=== PATIENT | male | born 1950 | race Caucasian/White ===

== ENCOUNTER 2017-06-22 11:49 | Inpatient (IN) | payer OTHER, MEDICARE ==
[~2017-06-22] VITALS: Ht 182.9 cm; Wt 100.5 kg
[~2017-06-22 11:49] MED LIST: FAMO20T PO; MAG355OR31 PO
[2017-06-22 12:06] VITALS: BP 126/80; PULSE 77; RESP 14; O2SAT 98
--- NOTE | 2017-06-22 12:25 | ED.REPORT ---
HPI-Abd Pain M 40 and Over Date of Service Jun 22, 2017 ED Provider: Gustavo Chao MD Patient is a 66 year old male with a hx of hyperlipidemia and borderline DM who presents to the ED complaining of LLQ abdominal pain onset yesterday. Associated symptoms include fever and decreased appetite. He denies nausea, vomiting, hematochezia, cough, SOB, congestion, or any other symptoms. He has not had a BM in over 24 hours. He last last ate or drank this morning. Patient has had diverticulitis previously. Nursing Notes Stated Complaint: DIVERTICULITIS Chief Complaint: Male Abdominal Pain Nursing Notes Reviewed: Yes Allergies: Coded Allergies: No Known Allergies (Unverified , 12/05/15) Scheduled Famotidine (Pepcid) 20 Mg Tablet 20 MG PO BID Mag Hydrox/Al Hydrox/Simeth (Antacid M Liquid) 355 Ml Oral.susp 15 ML PO q4hr General Time Seen by MD: 12:20 Chief Complaint Abdominal pain Hx Obtained From: Patient Arrived By: Walk-in Sudden in Onset?: Yes Onset Occurred: Yesterday Symptom Duration: Since onset Recent Healthcare: Recent doctor visit Similar Sx Previous: Yes Risk Factors )( AAA Risk Stratification SmokingNo Hypertension, No Marfan's syndrome, No Prior AAA Risk factors reviewed Past Medical History Past Medical History alcoholism PTSD cat scratch fever Reports: Diabetes mellitus (borderline ), Hyperlipidemia Reports: Diverticulitis Past Surgical History abd hernia Smoking History Current Every Day Smoker Social History reported previously in recovery Alcohol Use: "Social" Drug Use: Denies drug use Ambulatory Status Independent Review of Systems Review of Systems Note: +decreased appetite Constitutional: Reports: Fever Respiratory: Denies: Non-productive cough, Shortness of breath GI: Reports: Abdominal pain, Denies: Hematochezia, Nausea, Vomiting Complete sys rev & neg: except as marked. Ears / Nose / Throat: Denies: Nasal congestion Physical Exam Initial Vital Signs Vital Signs (First) Date Time Temp Pulse Resp B/P Pulse Ox O2 Delivery O2 Flow Rate FiO2 06/22/17 12:06 37.7 77 14 126/80 98 Room Air Initial VS: Reviewed, Vital signs abnormal Head / Eyes: Atraumatic, Normocephalic Neck: Full range of motion Skin: Warm, Dry Neurologic: Alert, Oriented, Nonfocal Psychiatric: Mood/affect normal, Behavior normal, Normal thought content General/Constitutional: Awake, Alert, No acute distress Respiratory / Chest: Atraumatic, Breath sounds NL, Breath sounds = bilat, No respiratory distress Cardiovascular: Heart rate NL, Regular rhythm, Heart sounds NL, No murmurs Abdomen: Atraumatic, Soft Diminished bowel sounds moderate LLQ tenderness no rebound or guarding Back: Atraumatic Interpretation & Diagnostics Lab Results Interpretation Result Diagram: 06/22/17 1225 06/22/17 1225 Test 06/22/17 12:25 06/22/17 14:02 White Blood Count 17.4th/mm3 (3.8-10.1) Red Blood Count 4.90mil/mm3 (4.40-5.80) Hemoglobin 15.4g/dL (13.8-17.2) Hematocrit 44.1% (41.0-50.0) Mean Corpuscular Volume 90.0fL (81-100) Mean Corpuscular Hemoglobin 31.4pg (27.0-35.0) Mean Corpuscular Hemoglobin Concent 34.9% (32.0-37.0) Red Cell Distribution Width 13.0% (12.3-15.4) Platelet Count 286bil/L (150-400) Neutrophils (%) (Auto) 90.5% (40-74) Lymphocytes (%) (Auto) 5.5% (14-46) Monocytes (%) (Auto) 3.7% (4-12) Eosinophils (%) (Auto) 0% (0-5) Basophils (%) (Auto) 0.1% (0-3) Sodium Level 134mEq/L (134-144) Potassium Level 4.3mEq/L (3.5-5.2) Chloride Level 96mEq/L (97-108) Carbon Dioxide Level 24mmol/L (18-29) Blood Urea Nitrogen 18mg/dL (8-27) Creatinine 1.15mg/dL (0.76-1.27) Estimat Glomerular Filtration Rate 67mL/min (>59) Glucose Level 113mg/dL (60-99) Calcium Level 9.4mg/dL (8.5-10.1) Magnesium Level 2.0mg/dL (1.6-2.6) Total Bilirubin 1.2mg/dL (0.0-1.2) Aspartate Amino Transf (AST/SGOT) 12U/L (0-50) Alanine Aminotransferase (ALT/SGPT) 13U/L (0-44) Alkaline Phosphatase 85U/L (25-160) Total Protein 8.1g/dL (6.4-8.4) Albumin 4.4g/dL (3.4-5.0) Lipase 13U/L (13-60) Hold Rosario Top Tube Received (Received) Urine Color Yellow (YELLOW) Urine Appearance Hazy (CLEAR,HAZY) Urine pH 6.0 (5.0-8.0) Urine Specific [place] 1.025 (1.003-1.035) Urine Protein Tracemg/dL (NEG,TRACE) Urine Glucose (UA) Negativemg/dL (NEGATIVE) Urine Ketones Tracemg/dL (NEGATIVE) Urine Occult Blood Negative (NEGATIVE) Urine Nitrite Negative (NEGATIVE) Urine Bilirubin Negative (NEGATIVE) Urine Urobilinogen Normalmg/dL (NORMAL) Urine Leukocyte Esterase Negative (NEGATIVE) Urine RBC 0-2/hpf (0-2) Urine WBC 0-5/hpf (0-5) Urine Epithelial Cells Occasional/hpf (NONE-MOD) Urine Crystals None seen (NONE SEEN) Urine Bacteria Few/hpf (NONE-FEW) Urine Hyaline Casts None/lpf (NONE) Urine Granular Casts Occasional (NONE SEEN) Urine Waxy Casts None seen (NONE SEEN) Urine Red Blood Cell Casts None seen (NONE SEEN) Urine White Blood Cell Casts None seen (NONE SEEN) Urine Mucus Present (None Seen) Urine Trichomonas None seen (NONE SEEN) Urine Yeast None (NONE SEEN) Urinalysis Comment None Urine Culture Reflexed Not indicated Re-Eval/Medical Decision Med Decision/Clinical Course 66-year-old male history of alcohol abuse is not in with left lower quadrant pain. CT scan shows diverticulitis with a small 1 x 1.8 cm abscess with perforation. His white count is 17,000. Discussed with general surgery who recommends admission to hospital service with IV antibiotics. They will evaluate. Patient was given 2 L normal saline and Zosyn. Blood cultures were sent. He is kept nothing by mouth. Last by mouth was last night. He reports he has not had a drink in quite some time. Discharge & Departure Primary Impression: Diverticulitis of intestine with perforation and abscess Disposition: ADMITTED TO HOSPITAL Vital Signs - All Vital Signs Date Time Temp Pulse Resp B/P Pulse Ox O2 Delivery O2 Flow Rate FiO2 06/22/17 14:10 37.9 80 14 128/81 98 Room Air 06/22/17 12:06 37.7 77 14 126/80 98 Room Air Referrals: Kuldeep aLtif ND (PCP) Scribe Attestation Portions of this note were transcribed by Conchis Sanders. I, Dr. Chao personally performed the history, physical exam and medical decision-making; I reviewed and confirmed the accuracy of the information in the transcribed note. copies to: Kuldeep Latif ND, Ben M MD Jun 22, 2017 12:25 CONCHIS SANDERS Jun 22, 2017 12:33
[2017-06-22] MEDS ORDERED: 0.9% Sodium Chloride 1,000 ML IV ONE ×3 (12:30→17:40)
[2017-06-22] MEDS ORDERED: Ondansetron 2 mg/mL 2 mL Inj IVPUSH PRN ×3 (12:30→15:55)
[2017-06-22 12:40] LABS: BASOPHILS % (AUTO) 0.1 % (0-3); EOSINOPHILS % (AUTO) 0 % (0-5); MONOCYTES % (AUTO) 3.7 % (4-12); Mean Corpuscular Hemoglobin 31.4 pg (27.0-35.0); NEUTROPHILS % (AUTO) 90.5 % (40-74); Platelet Count 286 bil/L (150-400)
[2017-06-22 14:10] VITALS: BP 128/81; PULSE 80; RESP 14; O2SAT 98
[2017-06-22 14:27] LABS: APPEARANCE,URINE HAZY (CLEAR,HAZY); COLOR,URINE YELLOW (YELLOW)
[2017-06-22 14:28] LABS: OCCULT BLOOD,URINE NEGATIVE (NEGATIVE); UROBILINOGEN,URINE NORMAL (NORMAL)
--- NOTE | 2017-06-22 15:17 | DRSVH ---
PROCEDURE: CT ABDOMEN AND PELVIS WITH CONTRAST ([id number]) INDICATIONS: LLQ pain TECHNIQUE: After the administration of intravenous contrast, 5 mm thick sections acquired from the diaphragm to the symphysis. 5 mm coronal and sagittal reformats were acquired. For radiation dose reduction, the following was used: automated exposure control, adjustment of mA and/or kV according to patient isabell perez. COMPARISON: [facility], CT, CT ANGIO CHEST ABD, 05/13/2016, 19:19. FINDINGS: Image quality: Excellent. ABDOMEN: Lung bases: Right basilar atelectasis. Heart size is normal. There is a small hiatal hernia. Solid organs: Liver and spleen are normal in size and enhancement. Gallbladder is normal. Biliary system is non dilated. Pancreas enhances normally. No adrenal nodules. Kidneys demonstrate normal size and enhancement, without hydronephrosis. Peritoneum and bowel: There is a small to moderate amount of free peritoneal air. There are numerous colonic diverticula. There is mild stranding adjacent to the proximal sigmoid colon consistent with acute diverticulitis. There is a small pocket of fluid with air in the left lower quadrant anteriorly measuring 1.8 x 1.1 cm, suspicious for a tiny diverticular abscess. Bowel loops demonstrate normal c aliber. There is a trace amount of free fluid in the left lower quadrant. Nodes and vessels: No retroperitoneal or mesenteric adenopathy by size criteria. Aorta and inferior vena cava are normal in size. Miscellaneous: No ventral hernias. PELVIS: Genitourinary: Bladder wall thickness is normal. Prostate is enlarged. Miscellaneous: No inguinal adenopathy. Fat-containing inguinal hernias bilaterally. Bones: Again noted is a bone island in the left iliac bone. There are large anterior osteophytes in l ower thoracic spine. Moderate to severe degenerative disc disease at L4-L5 and L5-S1. There is grade 1 anterolisthesis of L5 over S1 secondary to pars defects. No vertebral body compression fractures. IMPRESSION: 1. Perforated diverticulitis. There are numerous colonic diverticula. There is mild stranding in the left lower quadrant and a small amount of free fluid consistent with acute diverticulitis. A small to moderate amount of free air is present consistent with diverticular perforation. A 1.1 x 1.8 cm smal l fluid collection with air is present in the left lower quadrant anteriorly, suspicious for a small diverticular abscess. 2. Small hiatal hernia. The result was discussed with Dr. Chao prior to dictation. Dictated by: David Hill M.D. on 06/22/2017 at 14:56 Approved by: David Hill M.D. on 06/22/2017 at 15:15
[2017-06-22] MEDS ORDERED: Piperacillin-Tazo 3.375 Gm Inj 3.375 GM in Dextrose 5% Minibag Plus 50 ML IV ONE (15:20)
[2017-06-22] MEDS ORDERED: Alum-Mag Hydrox-Simeth 30 mL Suspension PO PRN ×2 (15:35→15:55)
[2017-06-22 15:52] VITALS: BP 151/68; PULSE 88; RESP 20; O2SAT 97
[2017-06-22] MEDS ORDERED: Polyethylene Glycol (PEG) 17 Gm Powder PO PRN (15:55)
[2017-06-22] MEDS ORDERED: MethylprednisoLONE Sodium Succinate 62.5 mg/mL 2 mL Inj IVPUSH ONE (16:10)
[2017-06-22 17:25] VITALS: BP 133/75; PULSE 78; RESP 18; O2SAT 98
[2017-06-22] MEDS ORDERED: ATOR20TA65 PO (17:28)
[2017-06-22] MEDS ORDERED: ACET325T51 PO (17:30)
[2017-06-22] MEDS ORDERED: IBUP400T22 PO (17:30)
[2017-06-22] MEDS ORDERED: ACET-171 PO (17:30)
--- NOTE | 2017-06-22 17:47 | PCM.HPMED ---
Subjective Date of Service Jun 22, 2017 Primary Provider: Admitting Physician: Stephenie Munroe DO Primary Care Physician: Kuldeep Latif ND Attending Physician: Stephenie Munroe DO Chief Complaint: Abdominal pain History of Present Illness: 66-year-old male with a history of diverticulitis, diabetes, and hyperlipidemia who presented to the emergency department today due to 36 hours of severe left lower quadrant abdominal pain without radiation or hematochezia. Patient states that the onset was acute and associated with fever and anorexia but no diarrhea, nausea, vomiting, cough, or other signs of systemic infections. Patient states that he is also had a bowel movement in more than a day which is unusual for him. His attempted to eat but complains of increased pain in the left lower quadrant, his last attempt being this morning. Appears his last bout of diverticulitis was in 2009. Patient had prior admission in April 2016 after suffering a fall after being intoxicated. At that time he is very combative and sedatives were given by EMT , causing the patient become apneic and required ventilation and a stay in the ICU overnight. In the emergency department today the patient was given Zosyn which cause a skin reaction that mimics red man's syndrome. The antibiotics were stopped and patient was switched to ertapenem on admit. Patient was also given two liters of fluid and underwent CT scan of the abdomen. CT demonstrated a pattern consistent with diverticulitis with perforation and Dr. Altamirano (surgery) was called to evaluate the patient for possible surgery. Per discussion with Dr. Altamirano the patient was not scheduled for surgery today and will be reevaluated tomorrow morning. Review of Systems: Complete review of systems performed; pertinent positives and negatives per history of present illness, all other systems reviewed and are negative Allergies Coded Allergies: piperacillin (Verified Allergy, Mild, Red rash over the torso, 06/22/17) tazobactam (Verified Allergy, Mild, Red rash over the torso, 06/22/17) Home Medications Famotidine 20 mg by mouth twice a day Maalox PMH Alcoholism PTSD Scratch fever Diabetes Hyperlipidemia History of diverticulitis Surgical History Hernia Family History Mother of stroke at 68 Father of alcohol abuse at 57 Social History Hx Alcohol Use: Yes (ETOH 20 yrs ago, past 5-6 yrs occ beer) Hx Substance Use: No Hx Tobacco Use: Yes Smoking Status: Current Every Day Smoker (20 pack year ) Living Arrangement: with Family Exam Vital Signs Vital Sign - Last Date Time Temp Pulse Resp B/P Pulse Ox O2 Delivery O2 Flow Rate FiO2 06/22/17 17:25 36.8 78 18 133/75 98 Room Air Exam General: Pleasant and conversing age-appropriate male HEENT: PERRLA, EOMI, nonicteric, membranes moist; red skin from his face and head down just below his breasts Lymph: No lymphadenopathy Cardio: Regular rate and rhythm no murmurs rubs or gallops Respiratory: CTA bilaterally, no wheezes, no crackles Abdomen: Soft but distended, tympanic, positive bowel sounds heard, exquisitely tender in the left lower quadrant Extremities: No edema, 5/5 strength, sensation intact Psych: Appropriate mood and affect Neuro: CN II through XII grossly intact, sensation intact throughout Skin: Patient has a diffuse dark and maroon rash that came on suddenly after the start of Zosyn Lab and Diagnostics Result Diagram: 06/22/17 1225 06/22/17 1225 X-Rays, CTs and MRIs CT abdomen 1. Perforated diverticulitis. There are numerous colonic diverticula. There is mild stranding in the left lower quadrant and a small amount of free fluid consistent with acute diverticulitis. A small to moderate amount of free air is present consistent with diverticular perforation. A 1.1 x 1.8 cm small fluid collection with air is present in the left lower quadrant anteriorly, suspicious for a small diverticular abscess. 2. Small hiatal hernia. The result was discussed with Dr. Chao prior to dictation. Dictated by: David Hill M.D. on 06/22/2017 at 14:56 Assessment & Plan 66-year-old male with a history of diverticulitis presents to the emergency department with ongoing severe left lower quadrant abdominal pain that began yesterday with associated fever. CT of the abdomen revealed a pattern consistent with diverticulitis with perforation. Acute Diverticulitis with perforation; present on admission; ongoing -Patient presents with severe abdominal pain especially left lower quadrant with CT evidence of perforation -Zosyn started in the emergency department but after about 10 minutes the patient developed is dark maroon rash from his head down below his chest -Patient seen by Dr. Altamirano (surgery) in the ED who will reevaluate the patient again tomorrow -Currently no plan for surgery -Ertapenem 1 g every 24 -3 L normal saline -125 mL/hour normal saline overnight -Lactic acid ordered -Morphine 1-2 mg for pain -Procalcitonin ordered Acute drug reaction; present on admission; ongoing -Reaction began after 10-15 minutes of Zosyn; mimicking red man syndrome -Benadryl 50 mg once -Solu-Medrol 125 mg once -No compromised airway Diabetes type II; present on admission; ongoing -Patient currently not on any medication at home -A1c ordered GERD -Continue famotidine Hyperlipidemia -Continue atorvastatin History of alcohol abuse -Patient not currently using alcohol Disposition: Patient is being admitted to inpatient status with expected length of stay greater than two midnights due to to severity of presentation, duration of treatment, and risks of adverse events disposition Full code Pain Evaluation: Adequate Pain Control VTE Prophylaxis: Sub-Q Heparin (Unfractionated) VTE Mechanical Devices: Intermittant Pneumatic CD Resuscitation Status: CPR: Attempt Resuscitation Time spent 40 min Attending Statement The patient was seen and examined together with Dr. Colmenares on 06/22/27 and I agree with the history, exam and plan as outlined in the note above. Niles Colmenares DO Jun 22, 2017 17:47 Stephenie Munroe DO Jun 29, 2017 00:13
[2017-06-22] MEDS: 0.9% Sodium Chloride 1,000 ML IV SCH (17:48)
--- NOTE | 2017-06-22 18:41 | NUR ---
Admission received report from ER and patient arrived to [facility] rm 1001 at 1720hrs. patient reports 5/10 abdominal pain described as sharp. reports tolerable for now. stated that LLQ pain comes and goes and is feeling much better now then earlier today. admission process and Med Rec completed. continue to monitor.
[2017-06-22 20:01] VITALS: BP 124/76; PULSE 70; RESP 17; O2SAT 93
[2017-06-22] MEDS: Ertapenem Inj 1,000 MG in 0.9% Sodium Chloride 50 ML IV SCH (20:05)
[2017-06-23 00:04] VITALS: BP 117/70; PULSE 71; RESP 18; O2SAT 97
[2017-06-23] MEDS: 0.9% Sodium Chloride 1,000 ML IV SCH ×2 (00:49→09:09)
--- NOTE | 2017-06-23 03:58 | NUR ---
Activity Patient A&OX3 and pleasant this evening. Denies CP or SOB. Rates LLQ abd pain 0-1/10 pain this evening. Tender to touch, and patient states pain increases with activity. Has not required any additional pain medication at this time. CAPACITY MANAGEMENT SPECIALIST applied due to high NICA score. Will continue to monitor and continue Q1 hour checks.
[2017-06-23 05:54] VITALS: BP 135/72; PULSE 65; RESP 18; O2SAT 94
[2017-06-23 05:58] LABS: EOSINOPHILS % (AUTO) 0.1 % (0-5); MONOCYTES % (AUTO) 1.7 % (4-12); Mean Corpuscular Hemoglobin 30.9 pg (27.0-35.0); Mean Corpuscular Volume 91.2 fL (81-100); NEUTROPHILS % (AUTO) 92.4 % (40-74); Platelet Count 232 bil/L (150-400)
[2017-06-23 05:59] LABS: BASOPHILS % (AUTO) 0 % (0-3)
[2017-06-23 06:09] LABS: INR 1.16 ratio
--- NOTE | 2017-06-23 08:31 | PCM.PNSURG ---
Subjective Date of Service: Jun 23, 2017 Date of Service: Jun 23, 2017 Visit Information: Reason for Visit Diverticulitis Surgery/Surgery Date Post-Op Day # Date of Admission: Jun 22, 2017 at 16:30 Hospital Day # 2 Subjective: Improved pain, no nausea, vomiting, or bowel movement. The patient is hungry and passing gas. Postop General: No Complaints Gastrointestinal: Good Appetite, No N/V, Passing Flatus Pain Management: No or Minimal Pain Postop Activity: Ambulate without Assist Objective Vital Sign- Last 8 Hours Date Time Temp Pulse Resp B/P Pulse Ox O2 Delivery O2 Flow Rate FiO2 06/23/17 05:54 36.7 65 18 135/72 94 Room Air Intake and Output- Last 8 Hour 06/23/17 Cumulative From/Thru 07:00 06/22/17 12:06 - 06/23/17 06:29 Intake Total 1481 ml 2481 ml Output Total 1300 ml 1300 ml Balance 181 ml 1181 ml Intake Oral 0 ml 0 ml IV Total 1481 ml 2481 ml Output Urine Total 1300 ml 1300 ml # Voids 0 # Bowel Movements 0 0 General: Alert, Oriented X3, Cooperative, No Acute Distress Lungs: Clear to Auscultation Heart: Exam Unremarkable Abdomen: Soft, Appropriately tender (LLQ), Non-distended, Normoactive bowel tones Extremities: Thigh&Calf Soft/Nontender Neuro: Normal Speech Result Diagram: 06/23/17 0510 06/23/17 0510 Assessment & Plan Impression This 66-year-old male with a past medical history of previous diverticulosis and two day history of left lower quadrant pain and CT scan showing diverticulitis with 1-2 cm abscess and small amount of related free air. Dr. Reagan Altamirano consulted the patient recommending admission and conservative medical management on ertapenem. The patient is currently on NPO diet without nausea or vomiting and improved pain and LLQ tenderness to palpation without bowel movements but is passing gas. He is hungry wants to go home. On-Call General Surgeon Dr. Silvino Dacosta recommended continuing the broad spectrum antibiotics and NPO until he has a bowel movement. Then advancing diet and PO antibiotics with disposition home may be considered. Primary Diagnosis Diverticulitis (Clinically Improved) with 1-2 cm abscess & small amount of related free air. Past Medical & Surgical History alcoholism PTSD cat scratch fever Reports: Diabetes mellitus (borderline ), Hyperlipidemia Diverticulosis with hematochezia Smoker Problems: Plan 1. Conitnue NPO with comfort ice chips only until BM. 2. Medical treatment per Hospitalist Team 3. Encourage ambulation with fall precautions 4. Pain Management PRN VTE Prophylaxis: Sub-Q Heparin (Unfractionated), SCDs Resuscitation Status: CPR: Attempt Resuscitation Jun Jackson PA-C Jun 23, 2017 08:31
[2017-06-23 08:52] VITALS: BP 137/76; PULSE 68; RESP 18; O2SAT 97
--- NOTE | 2017-06-23 12:17 | CONS ---
[address] [address] CONSULTATION REPORT PATIENT: JAMARI VINCENT : 1950 MR#: [id number] ADMIT: 06/22/2017 JOB ID: [id number] DATE OF SERVICE: 06/22/2017 HISTORY OF PRESENT ILLNESS: The patient (he prefers Rodríguez over Jamari) is 66 years old and I was asked to see in consultation for Dr. Gustavo Chao for abdominal pain. He said that the pain started yesterday and was severe. It has improved today but it persisted. He has not had nausea or vomiting. He has not had similar previous symptoms. He has no urinary symptoms including no history of pneumaturia. He came to the emergency department. He was noted to have left lower quadrant tenderness. A CT scan of his abdomen was obtained showing diverticulitis with a 1.1 x 1.8 cm fluid collection in the left lower quadrant, but also small bubbles of free air just below the transverse colon, and a small amount of free air under the left diaphragm. He had a colonoscopy in 2009 for bright red blood per rectum and he was found to have diffuse sigmoid and descending colon diverticulosis. By history, he has never had a previous episode of diverticulitis. Once again, he feels considerably better than he felt yesterday. He states he does not smoke and he only drinks a rare beer, but other previous reports indicate a past history of both nicotine use and excessive alcohol use. Again, he states he rarely drinks alcohol now and does not smoke anymore. MEDICATIONS: At home: Pepcid 20 mg b.i.d. ALLERGIES: None. OPERATIONS: No abdominal operations. PAST MEDICAL HISTORY: History of concussion. HABITS: He tells me no tobacco but Dr. Chao reports everyday smoker. SOCIAL HISTORY: He is . His 's name is Cammie, who is present. REVIEW OF SYSTEMS: No bowel movements for 24 hours. Again, no urinary symptoms. No nausea or vomiting. Feels considerably better than he did 24 hours ago. PHYSICAL EXAMINATION: BMI 29.9. Temperature 37.9, brachial blood pressure 151/68, pulse 88, respiratory rate 20, O2 sat room air 97%. HEENT: PERRLA. EOMI. No scleral icterus. Neck: No masses trachea midline. No crepitus. Lungs: Clear. Cardiac: Regular rhythm. I do not appreciate any murmurs. Abdomen: He has marked left lower quadrant tenderness but no other quadrant tenderness. He has some referred tenderness from the right lower quadrant to the left lower quadrant. Extremities: No edema. Skin: No anterior abdominal wall rashes. Neurologic: Appropriate affect. No obvious cranial nerve deficits. Gait not tested. LABORATORY RESULTS: White blood cell count 17.4, hematocrit 44, platelet count 286,000; he has a left shift. Electrolytes are normal. Creatinine 1.15, glucose 113. Liver function tests and lipase normal. CT scan is personally reviewed by myself and discussed with Dr. Maikol Pedro. IMPRESSION: Diverticulitis. He does have some small bubbles of free air, particularly in the left mid abdomen below the transverse colon, but a small amount of free air under the left hemidiaphragm. By physical examination he does not have diffuse peritonitis. He does have a small abscess on the CT scan but I think it can be handled with IV antibiotics. Based on his current physical examination, he does not need to go to the operating room tonight. I explained to him the natural history of diverticulitis. He is aware that things may change and he may need at this hospitalization an operation, but at this point I would give him clear liquids and broad-spectrum IV antibiotics and follow up a white blood cell count in the morning and follow up exams. The surgical service will be following along closely.
--- NOTE | 2017-06-23 15:34 | NUR ---
Social Work: Initial Assessment/Readiness for Discharge/Multi-Disciplinary Rounds D: EMR reviewed. Please see Initial Assessment linked to this note for more information. Pt is a 66 y/o male admitted for diverticulitis per H&P. Pt has a readmit risk score of 1. SW met with pt at bedside to conduct initial assessment. Pt was alert and oriented x3. SW explained role and wrote phone number on white board. SW provided "Your Discharge Planning Checklist" and encouraged pt to contact SW for any discharge planning questions. Pt's insurance is [employer] and Medicare. PCP is Kuldeep Encarnacion ND. Pt gave verbal consent to contact spouse Cammie Cantu [phone] for discharge planning. DPOA/advanced directive ppw discussed - pt declined information and ppw. Pt owns a cane but ambulates independently at baseline. Per rounds, pt anticipated to discharge after being assessed by OR. Pt likely to remain hospitalized another 1-2 days pending OR. Per pt, pt is ready to discharge and told MD he will go home tomorrow. A: SW assessed pt's capacity for self-care. SW does not have any concerns for pt's capacity for self-care. Pt is independent with ADLs at baseline. Pt does not have any concerns regarding discharge at this time. Pt feels safe discharging home and will remain independent. Pt declined any SW discharge needs at this time and states he does just fine at home with his . P: Pt likely to discharge home with spouse to transport via POV. No SW needs identified. No MD orders received. SW will continue to follow for needs. REBECCA Gunter Addendum: 06/23/17 at 1538 by EMMA PRADO Amended: Links added.
--- NOTE | 2017-06-23 15:36 | PCM.PNMED ---
Subjective Date of Service Jun 23, 2017 Subjective Patient is seen and examined. He is tolerated clears, was advanced to full liquids. Diabetes seems under control w/o meds. He wants to go home tomorrow. Appears surgery has improved this plan, they do recommend a colonoscopy in the near future. Exam Vital Signs Vital Sign - Last Date Time Temp Pulse Resp B/P Pulse Ox O2 Delivery O2 Flow Rate FiO2 06/23/17 08:52 36.5 68 18 137/76 97 Room Air Intake and Output 06/22/17 06/22/17 06/23/17 Cumulative From/Thru 15:00 23:00 07:00 06/22/17 12:06 - 06/23/17 06:29 Intake Total 1000 ml 0 ml 1481 ml 2481 ml Output Total 1300 ml 1300 ml Balance 1000 ml 0 ml 181 ml 1181 ml Intake Oral 0 ml 0 ml 0 ml IV Total 1000 ml 1481 ml 2481 ml Output Urine Total 1300 ml 1300 ml # Voids 0 0 # Bowel Movements 0 0 0 Exam General: Pleasant and conversing age-appropriate male HEENT: PERRLA, EOMI, nonicteric Lymph: No lymphadenopathy Cardio: Regular rate and rhythm no murmurs rubs or gallops Respiratory: CTA bilaterally, no wheezes, no crackles Abdomen: Soft but distended, tympanic, positive bowel sounds heard, mildly tender in the left lower quadrant Extremities: No edema, 5/5 strength, sensation intact Psych: Appropriate mood and affect Neuro: No focal deficits Lab and Diagnostics Result Diagram: 06/23/17 0510 06/23/17 0510 X-Rays, CTs and MRIs CT abdomen 1. Perforated diverticulitis. There are numerous colonic diverticula. There is mild stranding in the left lower quadrant and a small amount of free fluid consistent with acute diverticulitis. A small to moderate amount of free air is present consistent with diverticular perforation. A 1.1 x 1.8 cm small fluid collection with air is present in the left lower quadrant anteriorly, suspicious for a small diverticular abscess. 2. Small hiatal hernia. The result was discussed with Dr. Chao prior to dictation. Dictated by: David Hill M.D. on 06/22/2017 at 14:56 Assessment & Plan 66-year-old male with a history of diverticulitis presents to the emergency department with ongoing severe left lower quadrant abdominal pain that began yesterday with associated fever. CT of the abdomen revealed a pattern consistent with diverticulitis with perforation. Acute Diverticulitis with perforation; present on admission; improved -Patient presents with severe abdominal pain especially left lower quadrant with CT evidence of perforation -Zosyn started in the emergency department but after about 10 minutes the patient developed is dark maroon rash from his head down below his chest -Patient seen by Dr. Altamirano (surgery) in the ED -Currently no plan for surgery -Ertapenem 1 g every 24 -IV fluid hydration is provided -Lactic acid ordered -Patient is not needing pain medication -- He can be discharged home on a total of 14 days of antibiotics, he can take Augmentin by mouth -- Diet is advanced to full liquids Acute drug reaction; present on admission; ongoing -Reaction began after 10-15 minutes of Zosyn; mimicking red man syndrome -Benadryl 50 mg once -Solu-Medrol 125 mg once -No compromised airway Diabetes type II; present on admission; ongoing -Patient currently not on any medication at home -A1c ordered 5.8 GERD -Continue famotidine Hyperlipidemia -Continue atorvastatin History of alcohol abuse -Patient not currently using alcohol Disposition: Patient is being admitted to inpatient status with expected length of stay greater than two midnights due to to severity of presentation, duration of treatment, and risks of adverse events disposition Full code Pain Evaluation: Adequate Pain Control VTE Prophylaxis: Sub-Q Heparin (Unfractionated), SCDs VTE Mechanical Devices: Intermittant Pneumatic CD Resuscitation Status: CPR: Attempt Resuscitation Time spent 25 minutes Stephenie Munroe DO Jun 23, 2017 15:35
[2017-06-23] MEDS: Ertapenem Inj 1,000 MG in 0.9% Sodium Chloride 50 ML IV SCH (17:36)
[2017-06-23 17:49] VITALS: BP 135/77; PULSE 61; RESP 18; O2SAT 99
--- NOTE | 2017-06-23 18:32 | NUR ---
Activity/Skin/Diet Patient has been ambulating in the hallway and to the bathroom without issue or discomfort. Upgraded to full liquids for lunch and patient was able to tolerate this diet well. Denies nausea or an increase in stomach pain. Will be upgraded to a soft diet for dinner. Patient has dark red face, neck, and chest for entire shift with no change in color. Denies feeling flushed. Continuing to assess color on patient's body and for any new reactions to medications.
[2017-06-23 20:10] VITALS: BP 156/79; PULSE 63; RESP 17; O2SAT 98
--- NOTE | 2017-06-24 01:02 | NUR ---
Diet Patient upset at beginning of shift regarding diet. States he spoke with the doctor during the afternoon and was told that he'd be upgraded from a full liquid diet to a soft diet. Order was never placed. Patient tried to order a soft diet, but was brought a full liquid tray from the cafeteria. Patient is annoyed that he was told one thing and another thing is being implemented. Spoke with Dr. Munroe while she was on the unit and received verbal order to upgrade patient to soft diet this shift.
[2017-06-24 06:21] VITALS: BP 143/80; PULSE 65; RESP 17; O2SAT 98
[2017-06-24 07:27] LABS: BASOPHILS % (AUTO) 0.1 % (0-3); EOSINOPHILS % (AUTO) 0.3 % (0-5); MONOCYTES % (AUTO) 4.5 % (4-12); Mean Corpuscular Hemoglobin 31.1 pg (27.0-35.0); Mean Corpuscular Volume 91.6 fL (81-100); NEUTROPHILS % (AUTO) 82.4 % (40-74); Platelet Count 233 bil/L (150-400)
[2017-06-24] MEDS ORDERED: METR500T PO (07:50)
[2017-06-24] MEDS ORDERED: CIPR-231 PO (07:50)
--- NOTE | 2017-06-24 11:07 | PCM.DIMED ---
Discharge Instructions Date of Service Jun 24, 2017 Dates of Hospitalization Jun 22, 2017 at 16:30 Discharge Diagnosis Discharge Diagnosis Complicated Diverticulitis, DM II Diet Discharge Diet: Heart Healthy Activity Discharge Activity: No restrictions Call your provider Call your provider for: Shortness of breath, Bleeding, Chest pain, Vomitting, Excessive diarrhea, Weakness (unilateral), Other Patient Instructions Follow-up plan F/U with Dr. Altamirano from surgery/ [place] in 1 week, Discuss abx for travel with them F/U with PCP in 2 weeks Stephenie Munroe DO Jun 24, 2017 11:07
--- NOTE | 2017-06-24 11:34 | PCM.PNSURG ---
Subjective Date of Service: Jun 24, 2017 Visit Information: Reason for Visit Diverticulitis Surgery/Surgery Date Post-Op Day # Date of Admission: Jun 22, 2017 at 16:30 Hospital Day # Subjective: Feels well overall LLQ pain is rated 1/10 in severity, much improved from admission He is tolerating a diet without nausea, vomiting, or worsened pain Passing flatus and had a BM yesterday Afebrile Voiding independently Objective Vital Sign- Last 8 Hours Date Time Temp Pulse Resp B/P Pulse Ox O2 Delivery O2 Flow Rate FiO2 06/24/17 06:21 36.8 65 17 143/80 98 Room Air Intake and Output- Last 8 Hour 06/24/17 Cumulative From/Thru 07:00 06/22/17 12:06 - 06/24/17 06:21 Intake Total 1100 ml 5276 ml Output Total 1350 ml 2650 ml Balance -250 ml 2626 ml Intake Oral 1100 ml 1750 ml IV Total 3526 ml Output Urine Total 1350 ml 2650 ml # Voids 1 # Bowel Movements 0 1 General: Alert, Cooperative, No Acute Distress Neck: Supple Lungs: Normal Air Movement Abdomen: Other (Moderate tenderness to palpation in the LLQ. Otherwise the abdomen is soft, nontender, and nondistended. ) Result Diagram: 06/24/1771306/24/1714 Assessment & Plan Impression 66M with sigmoid diverticulitis with associated abscess and microperforation who has clinically improved with IV antibiosis. Problems: Plan Ok for discharge today, patient will not require surgical intervention this admission PO antibiotics for 10-14 days Patient should be able to travel in 3-4 weeks but should have a course of antibiotics available should he start to feel ill He should follow up in the general surgery [place] clinic in 2-3 weeks (prior to traveling). Appreciate care from primary medicine team during this admission. VTE Prophylaxis: Sub-Q Heparin (Unfractionated), SCDs Resuscitation Status: CPR: Attempt Resuscitation Sd De La Fuente MD Jun 24, 2017 11:34
--- NOTE | 2017-06-24 13:23 | NUR ---
Social Work: Discharge/Multidisciplinary Rounds D: EMR reviewed. Pt is on day 2 of hospitalization. Per multidisciplinary rounds, pt is medically stable to discharge home today. Pt to discharge home via POV with family this afternoon. No SW needs identified. No MD orders received. Pt does not have any discharge needs or questions. A: SW assessed pt's capacity for self-care. SW does not have any concerns for pt's capacity for self-care. Pt is independent with ADLs at baseline. Pt does not have any concerns regarding discharge at this time. Pt feels safe discharging home and will remain independent. Pt declined any SW discharge needs at this time and states he does just fine at home with his . P: Pt to discharge home today with spouse to transport via POV. No SW needs identified. No MD orders received. SW will follow for potential needs that may arise prior to pt leaving today. REBECCA Gunter
--- NOTE | 2017-06-24 14:42 | NUR ---
Discharge note- Patient denies complaints. Tolerating soft diet without nausea or abd. pain. Up ad neeraj. Discharged to home with and personal belongings.
--- NOTE | 2017-06-24 22:48 | PCM.DC.MED ---
Discharge Summary Date of Service Jun 24, 2017 Dates of Hospitalization Date of Hospital Admission Jun 22, 2017 at 16:30 Date of Discharge: Jun 24, 2017 Providers: Admitting Physician: Sonny Hurt DO Primary Care Physician: Kuldeep Latif ND Attending Physician: Sonny Hurt DO Diagnosis at Time of Discharge Diagnosis at Time of Discharge Complicated Diverticulitis, DM II Consultations Gen. surgery Procedures XRay, CTs & MRIs CT abdomen 1. Perforated diverticulitis. There are numerous colonic diverticula. There is mild stranding in the left lower quadrant and a small amount of free fluid consistent with acute diverticulitis. A small to moderate amount of free air is present consistent with diverticular perforation. A 1.1 x 1.8 cm small fluid collection with air is present in the left lower quadrant anteriorly, suspicious for a small diverticular abscess. 2. Small hiatal hernia. The result was discussed with Dr. Chao prior to dictation. Dictated by: David Hill M.D. on 06/22/2017 at 14:56 Brief History 66-year-old male with a history of diverticulitis, diabetes, and hyperlipidemia who presented to the emergency department today due to 36 hours of severe left lower quadrant abdominal pain without radiation or hematochezia. Patient states that the onset was acute and associated with fever and anorexia but no diarrhea, nausea, vomiting, cough, or other signs of systemic infections. Patient states that he is also had a bowel movement in more than a day which is unusual for him. His attempted to eat but complains of increased pain in the left lower quadrant, his last attempt being this morning. Appears his last bout of diverticulitis was in 2009. Patient had prior admission in April 2016 after suffering a fall after being intoxicated. At that time he is very combative and sedatives were given by EMT , causing the patient become apneic and required ventilation and a stay in the ICU overnight. In the emergency department today the patient was given Zosyn which cause a skin reaction that mimics red man's syndrome. The antibiotics were stopped and patient was switched to ertapenem on admit. Patient was also given two liters of fluid and underwent CT scan of the abdomen. CT demonstrated a pattern consistent with diverticulitis with perforation and Dr. Altamirano (surgery) was called to evaluate the patient for possible surgery. Per discussion with Dr. Altamirano the patient was not scheduled for surgery today and will be reevaluated tomorrow morning. Hospital Course 66-year-old male with a history of diverticulitis presents to the emergency department with ongoing severe left lower quadrant abdominal pain that began yesterday with associated fever. CT of the abdomen revealed a pattern consistent with diverticulitis with perforation. Acute Diverticulitis with perforation; present on admission; improved -Patient presents with severe abdominal pain especially left lower quadrant with CT evidence of perforation -Zosyn started in the emergency department but after about 10 minutes the patient developed is dark maroon rash from his head down below his chest -Patient seen by Dr. Altamirano (surgery) in the ED, Currently no plan for surgery -Ertapenem 1 g every 24 was given for 2 doses -IV fluid hydration is provided -Lactic acid ordered, negative -Patient is not needing pain medication -He can be discharged home on a total of 14 days of antibiotics, he can take cipro/flagyl by mouth -- Diet is advanced to full liquids, tolerating diet well. He was cleared by general surgery for discharge with follow-up in one week to discuss possible colonoscopy, possible colectomy etc. -- He wants to go to [facility] soon,, we discussed extensively the risks of making such travel at this point in time. Acute drug reaction; present on admission; resolved -Reaction began after 10-15 minutes of Zosyn; mimicking red man syndrome -Benadryl 50 mg once -Solu-Medrol 125 mg once -No compromised airway Diabetes type II; present on admission; not needing medical therapy -Patient currently not on any medication at home -A1c ordered 5.8 GERD chronic active -Continued famotidine Hyperlipidemia chronic active -Continued atorvastatin History of alcohol abuse chronic resolved -Patient not currently using alcohol Exam Vital Signs (Last) Date Time Temp Pulse Resp B/P Pulse Ox O2 Delivery O2 Flow Rate FiO2 06/24/17 06:21 36.8 65 17 143/80 98 Room Air Exam General: Pleasant and conversing age-appropriate male HEENT: PERRLA, EOMI, nonicteric Lymph: No lymphadenopathy Cardio: Regular rate and rhythm no murmurs rubs or gallops Respiratory: CTA bilaterally, no wheezes, no crackles Abdomen: Soft, non distended, tympanic, positive bowel sounds heard, mildly tender in the left lower quadrant Extremities: No edema, 5/5 strength, sensation intact Psych: Appropriate mood and affect Neuro: No focal deficits skin: Very faint pink rash over chest, looks much improved Test 06/22/17 12:25 06/22/17 14:02 06/22/17 18:00 06/22/17 18:03 Magnesium Level 2.0mg/dL (1.6-2.6) Lipase 13U/L (13-60) Hold Rosario Top Tube Received (Received) Urine Color Yellow (YELLOW) Urine Appearance Hazy (CLEAR,HAZY) Urine pH 6.0 (5.0-8.0) Urine Specific Melvin 1.025 (1.003-1.035) Urine Protein Tracemg/dL (NEG,TRACE) Urine Glucose (UA) Negativemg/dL (NEGATIVE) Urine Ketones Tracemg/dL (NEGATIVE) Urine Occult Blood Negative (NEGATIVE) Urine Nitrite Negative (NEGATIVE) Urine Bilirubin Negative (NEGATIVE) Urine Urobilinogen Normalmg/dL (NORMAL) Urine Leukocyte Esterase Negative (NEGATIVE) Urine RBC 0-2/hpf (0-2) Urine WBC 0-5/hpf (0-5) Urine Epithelial Cells Occasional/hpf (NONE-MOD) Urine Crystals None seen (NONE SEEN) Urine Bacteria Few/hpf (NONE-FEW) Urine Hyaline Casts None/lpf (NONE) Urine Granular Casts Occasional (NONE SEEN) Urine Waxy Casts None seen (NONE SEEN) Urine Red Blood Cell Casts None seen (NONE SEEN) Urine White Blood Cell Casts None seen (NONE SEEN) Urine Mucus Present (None Seen) Urine Trichomonas None seen (NONE SEEN) Urine Yeast None (NONE SEEN) Urinalysis Comment None Urine Culture Reflexed Not indicated Lactic Acid Level 1.1mmol/L (0.4-2.0) Hemoglobin A1c 5.8% (4.8-5.6) Test 06/23/17 05:10 06/24/17 07:14 Prothrombin Time 12.4sec (8.1-12.5) Prothromb Time International Ratio 1.16ratio Total Bilirubin 0.5mg/dL (0.0-1.2) Aspartate Amino Transf (AST/SGOT) 9U/L (0-50) Alanine Aminotransferase (ALT/SGPT) 10U/L (0-44) Alkaline Phosphatase 74U/L (25-160) Total Protein 6.3g/dL (6.4-8.4) Albumin 3.5g/dL (3.4-5.0) Procalcitonin 0.79ng/mL (0.00-0.08) White Blood Count 10.4th/mm3 (3.8-10.1) Red Blood Count 4.18mil/mm3 (4.40-5.80) Hemoglobin 13.0g/dL (13.8-17.2) Hematocrit 38.3% (41.0-50.0) Mean Corpuscular Volume 91.6fL (81-100) Mean Corpuscular Hemoglobin 31.1pg (27.0-35.0) Mean Corpuscular Hemoglobin Concent 33.9% (32.0-37.0) Red Cell Distribution Width 13.0% (12.3-15.4) Platelet Count 233bil/L (150-400) Neutrophils (%) (Auto) 82.4% (40-74) Lymphocytes (%) (Auto) 12.6% (14-46) Monocytes (%) (Auto) 4.5% (4-12) Eosinophils (%) (Auto) 0.3% (0-5) Basophils (%) (Auto) 0.1% (0-3) Sodium Level 143mEq/L (134-144) Potassium Level 4.3mEq/L (3.5-5.2) Chloride Level 108mEq/L (97-108) Carbon Dioxide Level 24mmol/L (18-29) Blood Urea Nitrogen 25mg/dL (8-27) Creatinine 0.91mg/dL (0.76-1.27) Estimat Glomerular Filtration Rate 88mL/min (>59) Glucose Level 112mg/dL (60-99) Calcium Level 8.3mg/dL (8.5-10.1) Discharge Medications Discharge Medications Atorvastatin Calcium (Atorvastatin Calcium) 20 Mg Tablet 20 MG PO DAILY ( Reported) Ciprofloxacin (Cipro) 500 Mg Tablet 500 MG PO BID Prescribed by: SONNY HURT DO Metronidazole (Flagyl) 500 Mg Tablet 500 MG PO Q8H Prescribed by: SONNY HURT DO As needed Acetaminophen (Acetaminophen) 500 Mg Tablet 500 MG PO HS PRN PRN For Pain ( Reported) Ibuprofen (Ibuprofen) 400 Mg Tablet 400 MG PO HS PRN PRN For Pain (Reported) Followup Plan Follow-up plan F/U with Dr. Altamirano from surgery/ [place] in 1 week, Discuss abx for travel with them F/U with PCP in 2 weeks Discharge Diet: Heart Healthy Discharge Activity: No restrictions Time spent Greater than 35 minutes spent in preparation of discharge with greater than 50% of the time dedicated to patient counseling and coordination of care Sonny Hurt DO Jun 24, 2017 22:48 Greater than 35 minutes spent in preparation of discharge with greater than 50% of the time dedicated to patient counseling and coordination of care Sonny Hurt DO Jun 24, 2017 22:48
--- NOTE | 2017-06-29 00:03 | PCM.DIMED ---
Discharge Instructions Date of Service June 24, 2017 Dates of Hospitalization Jun 22, 2017 at 16:30 Discharge Diagnosis Discharge Diagnosis Complicated Diverticulitis, DM II Diet Discharge Diet: Heart Healthy Activity Discharge Activity: No restrictions Call your provider Call your provider for: Shortness of breath, Bleeding, Chest pain, Vomitting, Excessive diarrhea, Weakness (unilateral), Other Patient Instructions Follow-up plan F/U with Dr. Altamirano from surgery/ [place] in 1 week, Discuss abx for travel with them F/U with PCP in 2 weeks Additional Information Please note that the discharge instruction from 06/24/17 was cancelled by mistake , pt did not have positive blood cx. This document should serve as discharge instructions for 06/24/17. Stephenie Munroe DO Jun 29, 2017 00:02
== END 2017-06-24 14:15 | disposition home or self-care (01) | DRG 392 ==
LOC: SED 11:49 → OSC 16:30
PROVIDERS: ADMIT Family Medicine; ATTEND Family Medicine
DX: K57.20 Diverticulitis of large intestine with perforation and abscess without bleeding (principal); E11.8 Type 2 diabetes mellitus with unspecified complications; E78.5 Hyperlipidemia, unspecified; F10.10 Alcohol abuse, uncomplicated; K21.9 Gastro-esophageal reflux disease without esophagitis; L25.8 Unspecified contact dermatitis due to other agents; T36.8X5A Adverse effect of other systemic antibiotics, initial encounter